=== PATIENT | female | born 1990 | race Two or more races ===

== ENCOUNTER 2025-01-30 15:45 | Emergency (ER) | payer SELFPAY ==
[2025-01-30 15:46] VITALS: BMI 41.5
[2025-01-30 16:48] VITALS: BP 150/92; PULSE 86; RESP 18; TEMP 36.9; O2SAT 99
--- NOTE | 2025-01-30 17:03 | PD.EDSKIN ---
ED Skin Abcess FB-RME/HPI General Chief complaint: Skin/Abscess/Foreign Body Stated complaint: SORE TO LEFT HIP FOR 3 DAYS Time Seen by Provider: 01/30/25 16:24 Arrival date/time: 01/30/25 15:45 This is a 34-year-old female that comes in with complaints of possible abscess possible bug bite to her left hip area. Patient states that she is also having some drainage from her right armpit. Patient states that she has been using warm compresses and not gotten better. Related Data Previous Rx's ?Medication ?Instructions ?Recorded lisinopril 10 mg tablet 10 mg PO QDAY #30 tabs 09/28/23 ibuprofen 800 mg tablet 800 mg PO TID PRN pain #30 tabs 12/22/23 cephalexin 500 mg capsule 500 mg PO QID 7 days #28 caps 01/30/25 doxycycline hyclate 100 mg tablet 100 mg PO BID 7 days #14 tabs 01/30/25 Allergies Allergy/AdvReac Type Severity Reaction Status Date / Time No Known Allergies Allergy Verified 01/30/25 15:48 Course Orders Category Date Time Status 1,000 mg IM w/Lido* 1% Med 01/30/25 17:04 Ordered cefTRIAXone [Rocephin] 1,000 mg Lidocaine 1% 20 ml [Xylocaine 1% 20 ML] 2.1 ml IM X1 Vital Signs Vital signs: Vital Signs Temperature 98.5 F 01/30/25 16:48 Pulse Rate 86 01/30/25 16:48 Respiratory Rate 18 01/30/25 16:48 Blood Pressure 150/92 H 01/30/25 16:48 Pulse Oximetry (%) 99 01/30/25 16:48 Oxygen Delivery Method Room Air 01/30/25 16:48 Skin / Abscess / Foreign Body MDM Narrative MDM Narrative:: Will treat patient with a dose of Rocephin. Will send patient home on Keflex and doxycycline. Patient told to use warm compresses at home she is also informed to follow-up with the primary provider in 1 to 2 days. Come back to the emergency room symptoms change or worsen.. Discharge Plan Plan Patient Disposition: HOME (Self Care) Patient condition on transfer: Stable Prescriptions/Referrals Prescriptions/Med Rec: New cephalexin 500 mg capsule 500 mg PO QID 7 Days Qty: 28 0RF doxycycline hyclate 100 mg tablet 100 mg PO BID 7 Days Qty: 14 0RF No Action lisinopril 10 mg tablet 10 mg PO QDAY Qty: 30 0RF ibuprofen 800 mg tablet 800 mg PO TID PRN (Reason: pain) Qty: 30 0RF Problem List Clinical Impression: Cellulitis Patient/Caregiver Discharge Instructions Discharge Activity: activity as tolerated Education Materials: ED Cellulitis Additional Instructions: Use warm compresses every 4 hours to right armpit and left hip. Take antibiotics as prescribed. Follow-up with primary provider in 1 to 2 days. Come back to the emergency room symptoms change or worsen. Print Language: Bel[place]ian Stand Alone Forms: [facility] Award Info., Patient Portal Info Letter PA/BRICK WASHER Supervising Physician PA/BRICK WASHER Supervising Physician: [id number]
[2025-01-30] MEDS: cefTRIAXone 1,000 MG, LIDOCAINE 1% 20 ML 2.1 ML IM (17:32)
[2025-01-30 17:41] VITALS: BP 150/92; PULSE 82; RESP 18; TEMP 36.8; O2SAT 99
[2025-01-30 17:44] VITALS: RESP 18; TEMP 36.8; O2SAT 99
== END 2025-01-30 17:45 | disposition home or self-care (01) ==
LOC: SERX 17:14
PROVIDERS: Emergency Provider Emergency Medicine
DX: L03.116 Cellulitis of left lower limb (principal)
CPT/HCPCS: 96372; 99283; J0696; J3490